=== PATIENT | male | born 1965 | race Caucasian/White ===

== ENCOUNTER 2017-08-02 16:00 | Emergency (ER) | payer OTHER ==
[~2017-08-02] VITALS: Ht 177.8 cm; Wt 111.1 kg
[~2017-08-02 16:00] MED LIST: BIAXIN500 MG PO; CLARITIN10 MG PO; COMBIVENT1 ARO IH; MEDROL DOSEPAK4 MG PO
== END 2017-08-02 19:07 | disposition home or self-care (01) ==
LOC: ED 16:00
DX: S82.892A Other fracture of left lower leg, initial encounter for closed fracture (principal); M54.9 Dorsalgia, unspecified; Z91.040 Latex allergy status; Z98.890 Other specified postprocedural states; W19.XXXA Unspecified fall, initial encounter; Y93.89 Activity, other specified; Y92.89 Other specified places as the place of occurrence of the external cause; Y99.8 Other external cause status

== ENCOUNTER 2017-10-17 01:37 | Emergency (ER) | payer MEDICARE, OTHER ==
[~2017-10-17] VITALS: Ht 177.8 cm; Wt 113.4 kg
[2017-10-17] MEDS ORDERED: NEURONTIN300 MG PO (01:45)
[2017-10-17] MEDS ORDERED: TRAMADOL HCL50 MG PO (01:45)
[2017-10-17] MEDS ORDERED: TOPROL XL25 MG PO (01:46)
== END 2017-10-17 08:05 | disposition short-term general hospital (02) ==
LOC: ED 01:37
DX: Q27.39 Arteriovenous malformation, other site (principal); Z79.899 Other long term (current) drug therapy

== ENCOUNTER 2023-08-27 08:17 | Emergency (ER) | payer OTHER, MEDICARE ==
[~2023-08-27] VITALS: Ht 177.8 cm; Wt 113.4 kg
[~2023-08-27 08:17] MED LIST changes: +NEURONTIN300 MG PO; +TOPROL XL25 MG PO; +TRAMADOL HCL50 MG PO
[2023-08-27 09:14] LABS: BASO % 0.4 % (0.0-1.0); EOS # 0.2 10*3/uL (0.0-0.4); EOS % 2.5 % (1.0-4.0); HEMATOCRIT 41.1 % (42.0-52.0); LYMPH # 1.4 10*3/uL (1.3-4.4); MEAN CORPUSCULAR HGB 28.1 pg (27.0-31.0); MEAN CORPUSCULAR HGB CONC 31.9 g/dl (33.0-37.0); MEAN PLATELET VOLUME 9.6 fl (9.6-12.3); MONO % 12.7 % (3.0-9.0); NEUT # 4.9 10*3/uL (2.3-7.9); PLATELET COUNT AUTOMATED 166 10*3/uL (130-400); RED BLOOD COUNT 4.67 10*6/uL (4.50-5.90); RED CELL DISTRI WIDTH 14.6 % (0-14.5); WHITE BLOOD COUNT 7.5 10*3/uL (4.8-10.8)
[2023-08-27 09:30] LABS: ALKALINE PHOSPHATASE 74 U/L (46-116); BUN 15 mg/dl (9-23); CHLORIDE 96 mmol/L (98-107); POTASSIUM 2.6 mmol/L (3.4-5.1); SGPT/ALT 30 U/L (5-49); TOTAL PROTEIN 7.7 gm/dL (6.0-8.0)
[2023-08-27 10:01] LABS: BILIRUBIN Negative (Negative); BLOOD 3+ (Negative); CLARITY Clear (Clear); COLOR Yellow (Yellow); GLUCOSE 3+ (Negative); KETONE Trace (Negative); LEUKO ESTERASE Trace (Negative); NITRITE Negative (Negative); PH 5.5 (4.5-8.0); SPECIFIC GRAVITY >= 1.030 (1.001-1.030)
[2023-08-27 10:08] LABS: BACTERIA TRACE; EPITHELIAL CELLS 0-2; RBC TNTC rbc/hpf (0-2); WBC 31-40 wbc/hpf (0-5)
[2023-08-27] MEDS ORDERED: LIPITOR20 MG PO (10:24)
[2023-08-27] MEDS ORDERED: METFORMIN HYD1000 MG PO (10:24)
[2023-08-27] MEDS ORDERED: LYRICA150 M1 PO (10:25)
[2023-08-27] MEDS ORDERED: VITAMIN D325 MCG PO (10:25)
[2023-08-27] MEDS ORDERED: JARDIANCE25 MG PO (10:26)
[2023-08-27] MEDS ORDERED: CARVEDILOL25 MG PO (10:26)
[2023-08-27] MEDS ORDERED: HYGROTON25 MG PO (10:26)
[2023-08-27] MEDS ORDERED: TRAMADOL HCL100 MG PO (10:26)
[2023-08-27] MEDS ORDERED: COZAAR25 M1 PO (10:27)
[2023-08-27] MEDS ORDERED: PANTOPRAZOLE SO40 MG PO (10:27)
[2023-08-27] MEDS ORDERED: OMEPRAZOLE MAGN20 MG PO (10:28)
[2023-08-27] MEDS ORDERED: ASPIRIN81 M1 PO (10:28)
[2023-08-27] MEDS ORDERED: EUCERIN T (10:29)
[2023-08-27] MEDS ORDERED: ACETAMINOPHEN325 M2 PO (10:29)
[2023-08-27] MEDS ORDERED: ATORVASTATIN CA20 M1 PO (10:29)
[2023-08-27] MEDS ORDERED: CIPRO500 MG PO (11:10)
[2023-08-27] MEDS ORDERED: POTASSIUM CHLO20 ME3 PO (11:10)
== END 2023-08-27 11:13 | disposition home or self-care (01) ==
LOC: ED 08:17
PROVIDERS: Emergency Medicine
DX: N39.0 Urinary tract infection, site not specified (principal); R53.1 Weakness; J02.9 Acute pharyngitis, unspecified; I25.2 Old myocardial infarction; I10 Essential (primary) hypertension; Z20.822 Contact with and (suspected) exposure to COVID-19

== ENCOUNTER 2024-11-21 21:32 | Observation (INO) | payer OTHER ==
[~2024-11-21] VITALS: Ht 177.8 cm; Wt 111.4 kg
[~2024-11-21 21:32] MED LIST changes: +ACETAMINOPHEN325 M2 PO; +ASPIRIN81 M1 PO; +ATORVASTATIN CA20 M1 PO; +CARVEDILOL25 MG PO; +CIPRO500 MG PO; +COZAAR25 M1 PO; +EUCERIN T; +HYGROTON25 MG PO; +JARDIANCE25 MG PO; +LIPITOR20 MG PO; +LYRICA150 M1 PO; +METFORMIN HYD1000 MG PO; +OMEPRAZOLE MAGN20 MG PO; +PANTOPRAZOLE SO40 MG PO; +POTASSIUM CHLO20 ME3 PO; +TRAMADOL HCL100 MG PO; +VITAMIN D325 MCG PO
[2024-11-21 21:38] VITALS: BP 113/54
[2024-11-21 22:57] LABS: BASO % 0.5 % (0.0-1.0); HEMATOCRIT 40.5 % (42.0-52.0); MEAN CELL VOLUME 87.1 fl (80.0-94.0); MEAN CORPUSCULAR HGB 27.1 pg (27.0-31.0); MEAN CORPUSCULAR HGB CONC 31.1 g/dl (33.0-37.0); MONO # 1.1 10*3/uL (0.1-1.0); MONO % 14.9 % (3.0-9.0); NEUT % 65.8 % (47.0-73.0); PLATELET COUNT AUTOMATED 129 10*3/uL (130-400); RED BLOOD COUNT 4.65 10*6/uL (4.50-5.90); RED CELL DISTRI WIDTH 16.8 % (0-14.5); WHITE BLOOD COUNT 7.6 10*3/uL (4.8-10.8)
[2024-11-21 23:15] LABS: BUN 18 mg/dl (9-23); CHLORIDE 94 mmol/L (98-107); POTASSIUM 2.8 mmol/L (3.4-5.1)
[2024-11-21 23:30] LABS: BILIRUBIN Negative (Negative); BLOOD 2+ (Negative); CLARITY Cloudy (Clear); COLOR Dark Yellow (Yellow); GLUCOSE 3+ (Negative); KETONE Trace (Negative); LEUKO ESTERASE 2+ (Negative); NITRITE Negative (Negative); SPECIFIC GRAVITY >= 1.030 (1.001-1.030)
[2024-11-21] MEDS ORDERED: KLOXXADO8 MG NAS (23:47)
[2024-11-21] MEDS ORDERED: POTASSIUM CHLO20 ME3 PO (23:48)
[2024-11-21] MEDS ORDERED: SODIUM CHLORIDE 0.9% 1,000 ML IV ONE (23:55)
[2024-11-21] MEDS ORDERED: IOHEXOL 300 MG/ML 100 ML VIAL IV ONE (23:55)
[2024-11-21] MEDS ORDERED: POTASSIUM CHLORIDE 20 MEQ TAB PO ONE (23:55)
[2024-11-22] LABS: BACTERIA 4+; RBC 16-20 rbc/hpf (0-2); WBC 41-50 wbc/hpf (0-5)
[2024-11-22] MEDS ORDERED: IOHEXOL 300 MG/ML 100 ML VIAL ONE (00:23)
[2024-11-22] MEDS ORDERED: Piperacillin Sodium/Tazobact 50 ML IV ONE ×2 (00:40→07:00)
[2024-11-22 01:56] VITALS: BP 112/54
[2024-11-22] MEDS ORDERED: ACETAMINOPHEN 325 MG TAB PO ONE (02:00)
[2024-11-22] MEDS ORDERED: SODIUM CHLORIDE 0.9% 1,000 ML IV SCH (02:00)
[2024-11-22] MEDS ORDERED: Dexamethasone Sodium Phospha 20 MG/5 ML VIAL IV ONE (02:30)
[2024-11-22 04:46] VITALS: BP 106/54
[2024-11-22 07:34] VITALS: BP 115/69
[2024-11-22] MEDS ORDERED: ACETAMINOPHEN 650 MG SUPP R PRN (11:10)
[2024-11-22] MEDS ORDERED: BISACODYL 5 MG TAB PO PRN (11:10)
[2024-11-22] MEDS ORDERED: Magnesium Hydroxide 30 ML UDC PO PRN (11:10)
[2024-11-22] MEDS ORDERED: MORPHINE Sulfate 2 MG/ML SYR IV PRN (11:10)
[2024-11-22] MEDS ORDERED: Acetaminophen/Hydrocodone 5 MG/325 MG TABLET PO PRN (11:10)
[2024-11-22] MEDS ORDERED: TEMAZEPAM 15 MG CAP PO PRN (11:10)
[2024-11-22] MEDS ORDERED: ACETAMINOPHEN 325 MG TAB PO PRN (11:10)
[2024-11-22] MEDS ORDERED: BISACODYL 10 MG SUPP R PRN (11:10)
[2024-11-22] MEDS ORDERED: DEXTROSE 10 % IN WATER 250 ML IV PRN (11:20)
[2024-11-22] MEDS ORDERED: INSULIN LISPRO 1 UNIT/0.01 ML SQ SCH (11:30)
[2024-11-22 11:43] LABS: BASO % 0.2 % (0.0-1.0); HEMATOCRIT 40.3 % (42.0-52.0); MEAN CORPUSCULAR HGB 27.2 pg (27.0-31.0); MEAN CORPUSCULAR HGB CONC 31.3 g/dl (33.0-37.0); MONO # 0.3 10*3/uL (0.1-1.0); MONO % 5.2 % (3.0-9.0); NEUT % 76.9 % (47.0-73.0); PLATELET COUNT AUTOMATED 112 10*3/uL (130-400); RED BLOOD COUNT 4.63 10*6/uL (4.50-5.90); RED CELL DISTRI WIDTH 16.6 % (0-14.5); WHITE BLOOD COUNT 5.2 10*3/uL (4.8-10.8)
[2024-11-22 12:00] LABS: BUN 18 mg/dl (9-23); CHLORIDE 99 mmol/L (98-107); POTASSIUM 3.4 mmol/L (3.4-5.1)
[2024-11-22] MEDS ORDERED: Piperacillin Sodium/Tazobact 50 ML IV SCH (14:00)
[2024-11-22 16:30] VITALS: BP 129/76
[2024-11-22] MEDS ORDERED: dexAMETHasone 4 MG TAB PO SCH (18:00)
[2024-11-22 19:28] VITALS: BP 118/63
[2024-11-22] MEDS ORDERED: PREGABALIN 75 MG CAP PO SCH (22:00)
[2024-11-22] MEDS ORDERED: CARVEDILOL 25 MG TAB PO SCH (22:00)
[2024-11-23 05:30] VITALS: BP 113/60
[2024-11-23 05:33] LABS: BUN 20 mg/dl (9-23); CHLORIDE 99 mmol/L (98-107); POTASSIUM 3.3 mmol/L (3.4-5.1)
[2024-11-23 06:03] LABS: MEAN PLATELET VOLUME 10.9 fl (9.6-12.3)
[2024-11-23 06:16] LABS: BASO % 0.2 % (0.0-1.0); HEMATOCRIT 39.6 % (42.0-52.0); MEAN CELL VOLUME 86.7 fl (80.0-94.0); MEAN CORPUSCULAR HGB 27.1 pg (27.0-31.0); MEAN CORPUSCULAR HGB CONC 31.3 g/dl (33.0-37.0); MONO # 0.4 10*3/uL (0.1-1.0); MONO % 6.2 % (3.0-9.0); NEUT # 5.2 10*3/uL (2.3-7.9); NEUT % 78.5 % (47.0-73.0); PLATELET COUNT AUTOMATED 125 10*3/uL (130-400); RED BLOOD COUNT 4.57 10*6/uL (4.50-5.90); RED CELL DISTRI WIDTH 16.3 % (0-14.5); WHITE BLOOD COUNT 6.6 10*3/uL (4.8-10.8)
[2024-11-23] MEDS ORDERED: POTASSIUM CHLORIDE 20 MEQ TAB PO ONE (07:10)
[2024-11-23 08:03] VITALS: BP 125/70
[2024-11-23] MEDS ORDERED: ASPIRIN ENTERIC COATED 81 MG TAB PO SCH (10:00)
[2024-11-23] MEDS ORDERED: Pantoprazole Sodium 40 MG TAB PO SCH (10:00)
[2024-11-23] MEDS ORDERED: ATORVASTATIN CALCIUM 20 MG TAB PO SCH (10:00)
[2024-11-23] MEDS ORDERED: EMPAGLIFLOZIN 25 MG TABLET PO SCH (10:00)
[2024-11-23] MEDS ORDERED: CHLORTHALIDONE 25 MG TAB PO SCH (10:00)
[2024-11-23] MEDS ORDERED: Losartan Potassium 25 MG TAB PO SCH (10:00)
[2024-11-23] MEDS ORDERED: Enoxaparin Sodium 40 MG/0.4 ML SYR SC SCH (10:00)
[2024-11-23 13:27] VITALS: BP 128/74
[2024-11-23] MEDS ORDERED: GADOTERATE MEGLUMINE 10 MMOL/20 ML VIAL IV ONE (14:43)
[2024-11-23] MEDS ORDERED: GADOTERATE MEGLUMINE 5 MMOL/10 ML VIAL IV ONE (14:43)
[2024-11-23 18:26] VITALS: BP 117/73
[2024-11-23 20:26] VITALS: BP 122/71
[2024-11-23 23:03] VITALS: BP 123/60
[2024-11-24 05:17] LABS: BUN 24 mg/dl (9-23); CHLORIDE 103 mmol/L (98-107); POTASSIUM 3.3 mmol/L (3.4-5.1)
[2024-11-24 06:02] LABS: BASO % 0.1 % (0.0-1.0); HEMATOCRIT 40.5 % (42.0-52.0); MEAN CELL VOLUME 86.9 fl (80.0-94.0); MEAN CORPUSCULAR HGB CONC 31.1 g/dl (33.0-37.0); MEAN PLATELET VOLUME 10.7 fl (9.6-12.3); MONO # 0.7 10*3/uL (0.1-1.0); MONO % 7.4 % (3.0-9.0); NEUT % 78.8 % (47.0-73.0); PLATELET COUNT AUTOMATED 159 10*3/uL (130-400); RED BLOOD COUNT 4.66 10*6/uL (4.50-5.90); RED CELL DISTRI WIDTH 16.6 % (0-14.5); WHITE BLOOD COUNT 8.8 10*3/uL (4.8-10.8)
[2024-11-24] MEDS ORDERED: POTASSIUM CHLORIDE 20 MEQ TAB PO ONE (07:15)
[2024-11-24 07:34] VITALS: BP 129/69
[2024-11-24] MEDS ORDERED: OMNICEF300 MG PO (11:46)
== END 2024-11-24 11:07 | disposition home or self-care (01) ==
LOC: ED 21:32 → EDHOLD 11-22 07:49
PROVIDERS: Internal Medicine; Student in an Organized Health Care Education/Training Program; ADMIT Internal Medicine; ATTEND Internal Medicine
DX: A41.9 Sepsis, unspecified organism (principal); R53.1 Weakness; E87.6 Hypokalemia; R31.9 Hematuria, unspecified; R26.2 Difficulty in walking, not elsewhere classified; D64.9 Anemia, unspecified; D50.9 Iron deficiency anemia, unspecified; D69.6 Thrombocytopenia, unspecified; E87.20 Acidosis, unspecified; E11.65 Type 2 diabetes mellitus with hyperglycemia; Z79.899 Other long term (current) drug therapy